=== PATIENT | male | born 1945 | race Caucasian/White ===

== ENCOUNTER → 2023-06-04 10:12 | Outpatient (REF) | payer OTHER, SELFPAY | LOC: DHCBS MAIN 10:12 | PROVIDERS: ATTENDING PHYSICIAN Internal Medicine Cardiovascular Disease; FAMILY PHYSICIAN Internal Medicine | DX: I48.0 Paroxysmal atrial fibrillation (principal) | CPT/HCPCS: 93306 ==

== ENCOUNTER → 2023-06-15 11:28 | Outpatient (REF) | payer OTHER, SELFPAY | LOC: RAD 11:28 | PROVIDERS: ATTENDING PHYSICIAN Internal Medicine | DX: R93.89 Abnormal findings on diagnostic imaging of other specified body structures (principal); M54.50 Low back pain, unspecified; M54.6 Pain in thoracic spine | CPT/HCPCS: 71046; 72072; 72110 ==

== ENCOUNTER 2023-06-22 15:23 | Emergency (ER) | payer OTHER, SELFPAY ==
[2023-06-22 15:42] VITALS: BP 162/81
[2023-06-22 16:03] VITALS: BP 133/80
--- NOTE | 2023-06-22 16:09 | ED.GENMED ---
History of Present Illness
General
Chief Complaint: Weakness
Source: patient and family
Exam Limitations: none
Time Seen by Provider: 06/22/23 15:58
Travel History
Have you had any contact with someone who has COVID-19?: No
Do you have any symptoms of coronavirus? Fever > 100 degrees, chills, cough, shortness of breath, sore throat, loss of taste or smell, muscle aches, or headache?: No
History of Present Illness
History of Present Illness:
See MDM
Past History
Past History
ED Past Medical History: Arrthythmia, HTN and Other (BPH)
ED Past Surgical History: Other (Retinal Detachment )
Social History
Tobacco: Non-smoker
Alcohol: None
Phy Exam
Physical Exam
Physical Exam:
See MDM
Course
Orders/Labs/Results
Orders:
Orders
06/22/23 15:50
Electrocardiogram (*1) Urgent
Reason for Study: Fatigue / Weakness
EKG- Treatment ONCE
06/22/23 16:06
CT Chest With Iv Contrast Urgent
Comment: pna vs neopasm to R base on prior CXR
Reason For Exam: persistent SOB and weakness
06/22/23 16:13
CMP [Comprehensive Metabolic Panel] Urgent
COVID-19 Antigen Urgent
Source: Nasal Swab
Complete Blood Count/With Diff Urgent
Magnesium Urgent
NT-proBNP Urgent
PT/INR [Prothrombin Time] Urgent
PTT Urgent
Troponin I Urgent
Influenza A+B Rapid Molecular Urgent
CARLOS Source: Nasal Swab
Specimen Description:
06/22/23 16:33
Hydrocortisone Sod Succinate [Solu-Cortef] 200 mg IV NOW STA
06/22/23 16:39
Urinalysis Reflex To Culture Urgent
Date Specimen was Collected: 06/22/23
Time Specimen was Collected: 16:25
Abnormal Lab Results
06/22/23
16:13
RBC 3.93 L 10^6/uL
(4.70-6.10)
Hgb 10.1 L g/dL
(13.0-18.0)
Hct 31.1 L %
(39.0-52.0)
MCV 79.1 L fL
(80.0-94.0)
MCH 25.7 L pg
(27.0-31.0)
MCHC 32.5 L g/dL
(33.0-37.0)
RDW 16.5 H %
(11.5-14.5)
Plt Count 445 H 10^3/uL
(130-400)
Absolute Neuts (auto) 8.3 H 10^3/uL
(1.4-6.5)
Absolute Lymphs (auto) 0.6 L 10^3/uL
(1.2-3.4)
Absolute Monos (auto) 0.7 H 10^3/uL
(0.1-0.6)
Neutrophils % 84.0 H %
(42.2-75.2)
Lymphocytes % 6.0 L %
(20.5-51.1)
PT 20.3 H Sec
(11.4-14.6)
APTT 41.9 H Sec
(23.4-35.0)
Sodium 132 L mmol/L
(135-145)
Potassium 5.3 H mmol/L
(3.5-5.1)
Chloride 97 L mmol/L
(98-107)
BUN 30 H mg/dl
(9-20)
Glucose 130 H mg/dl
(70-99)
ALT 60 H U/L
(0-50)
Troponin I 0.044 H* ng/ml
Albumin 3.3 L g/dl
(3.5-5.0)
06/22/23 16:13
06/22/23 16:13
Vital Signs
Initial and Last Documented VS:
Initial Vital Signs
Temp Pulse Resp BP Pulse Ox
98.3 F 93 18 162/81 96
06/22/23 15:42 06/22/23 15:42 06/22/23 15:42 06/22/23 15:42 06/22/23 15:42
Last Documented Vital Signs
Temp Pulse Resp BP Pulse Ox
98.3 F 90 23 133/80 100
06/22/23 15:42 06/22/23 16:15 06/22/23 16:15 06/22/23 16:03 06/22/23 16:18
MDM/Problems Addressed
Differential Diagnosis Includes:
HPI and MDM Narrative:
77-year-old male presenting with generalized weakness and fatigue over the past 4 days. This is associated with shortness of breath. He had a follow-up with his PCP today and was sent to the emergency department for further evaluation.
denies fevers or cough. She did reference a chest x-ray done earlier in the month that showed concern for pneumonia versus cancer. He is scheduled for CT chest tomorrow. He is compliant with his Eliquis.
On exam, patient is very weak and fatigued. Will obtain CT chest to better evaluate the chest x-ray finding.
Physical exam
General: Weak and frail
HEENT: protecting airway
Neck: appears supple
CV: No evidence of cyanosis. Tachycardic but regular
Resp: No accessory muscle use. Poor air exchange but lungs appear clear
Abd: Non-distended
Extremities: No deformities. No leg edema
Neuro: alert
Psych: Flat affect
Skin: Intact
Problems Addressed including Acute and Chronic Conditions affecting care:
1. Generalized weakness
Acuity: acute
Prognosis: stable
Details: Will obtain basic blood work and urinalysis
2. Shortness of breath
Acuity: acute
Prognosis: stable
Details: Given compliance with Eliquis, doubt PE. Will obtain CT chest to further evaluate recent chest x-ray finding of pneumonia versus neoplasm
3. Lung cancer
Acuity: acute
Prognosis: stable
Details: CT scan consistent with lung cancer
Updates
6:45 PM indicates that she would like to take the patient home now. We did discuss the concerning blood work in regards to his heart. She does acknowledge my concerns but states that the plan for the family is to place him on palliative care
and possibly hospice.
At this point, the CT scan did return showing concern for metastatic lung cancer. We did discuss admission versus discharge. We discussed possible admission for pain control and possible bronchoscopy for biopsy. acknowledges this but states
that she is going to take him home. I will write for prescription of Percocet.
Differential Diagnosis (but not limited to): Pneumonia, lung cancer, dehydration, metabolic encephalopathy, CHF exacerbation
Testing considered: Lactic acid and blood cultures but will evaluate chest CT first
Drug therapy (if applicable): OTC meds, please see d/c instruction regarding Rx drugs
Amount and/or Complexity of Data Reviewed
Clinical info obtained from: Patient. states weakness has progressed over the past 4 days
External data reviewed: Chest x-ray performed earlier in the month showed right basilar pneumonia versus neoplasm
Labs I independently reviewed (but not limited to): Elevated troponin and BNP, mild hyperkalemia
Radiology: The CT scan was personally and independently reviewed. In addition, official CT report reviewed.
Pulse Ox: not hypoxic
EKG independently reviewed: Sinus rhythm, normal axis, no STEMI, PVCs
Sample Maker Hand: Sinus rhythm
Critical Care: N/A
Risk of Complication:
Social Determinants of health: Good social support
Discussed with other providers: N/A
Escalation of Care includes Admit/Obs: After being observed in the Emergency Department, pt seems mildly unstable but wants to take him home.
Occasional wrong word or 'sound a like' substitutions may have occurred due to the inherent limitations of voice recognition software. Read the chart carefully and recognize, using context, where substitutions have occurred.
*Critical Care Note
Total Time (30-74mins, 75-104mins- exclusive of procedures): Not Applicable
ED Attending Note
-
Portions of this chart may have been created with voice recognition software.� Occasional wrong word or��sound alike� substitutions may have occurred due to the inherent limitations of voice recognition software.
Discharge Plan
Departure
Patient Disposition: Home (Routine Discharge)
Date of Disposition: 06/22/23
Time of Disposition: 18:45
Patient with high blood pressure during this ER visit?: No
Discharge Problem:
Weakness
Instructions: Generalized Weakness (DC)
Prescriptions:
New
oxycodone 5 mg tablet
5 mg PO Q8H PRN (Reason: Pain) Qty: 20 0RF
No Action
clopidogrel 75 mg tablet
75 mg PO DAILY
tamsulosin 0.4 mg capsule
0.4 mg PO QPM
atorvastatin 40 mg Tablet
40 mg PO DAILY 30 Days Qty: 30 0RF
Eliquis 5 mg Tablet
5 mg PO BID 30 Days Qty: 60 0RF
Referrals:
UNKNOWN - PT DOES,NOT KNOW [Unknown Provider] -
Activity Restrictions/Additional Instructions:
As we discussed, his generalized weakness is likely related to the lung cancer found on the CT scan. There is metastatic disease as well.
He was given a prescription for narcotics. If he requires this pain medicine, please take a daily [id number] stool softener to avoid constipation.
Please bring the CT report and blood work to his primary care doctor.
You may return at any time.
Interventions
Interventions:
*General Assessment Last Done: 06/22/23 16:18
*Neglect/Abuse Screening Last Done: 06/22/23 16:18
ED- Fall Risk Assessment Last Done: 06/22/23 16:18
*ED COVID-19 Vaccine History Last Done: 06/22/23 16:18
ED- Cardiac Assessment Last Done: 06/22/23 16:18
ED- Neurological Assessment Last Done: 06/22/23 16:18
ED- Pulmonary Assessment Last Done: 06/22/23 16:18
[2023-06-22 16:16] VITALS: BMI 16.5
[2023-06-22 16:33] LABS: % Basophils 0.5 % (0-2); % Eosinophils 1.9 % (0-6); % Immature Granulocytes 0.4 % (0-0.5); % Monocytes 7.2 % (1.7-9.3); Absolute Basophils 0.1 10^3/uL (0-0.2); Absolute Eosinophils 0.2 10^3/uL (0-0.7); Absolute Lymphocytes 0.6 10^3/uL (1.2-3.4); Absolute Monocytes 0.7 10^3/uL (0.1-0.6); Absolute Neutrophils 8.3 10^3/uL (1.4-6.5); Hematocrit 31.1 % (39.0-52.0); Hemoglobin 10.1 g/dL (13.0-18.0); Mean Corp Hgb Conc. 32.5 g/dL (33.0-37.0); Mean Corpuscular Hgb 25.7 pg (27.0-31.0); Mean Corpuscular Volume 79.1 fL (80.0-94.0); Mean Platelet Volume 10.2 fL (7.4-10.4); Nucleated Red Blood Cells % 0 % (-); Platelet Count 445 10^3/uL (130-400); Red Blood Cell Count 3.93 10^6/uL (4.70-6.10); Red Cell Dist. Width 16.5 % (11.5-14.5); White Blood Cell Count 9.9 10^3/uL (4.8-10.8)
[2023-06-22] MEDS: SOLU-CORTEF 200 MG IV (16:44)
[2023-06-22 16:45] LABS: APTT 41.9 Sec (23.4-35.0); INR 1.75; PT 20.3 Sec (11.4-14.6)
[2023-06-22 16:49] LABS: COVID-19 Antigen Negative (Negative)
[2023-06-22 16:50] LABS: ALT (SGPT) 60 U/L (0-50); AST (SGOT) 57 U/L (17-59); Albumin 3.3 g/dl (3.5-5.0); Alkaline Phosphatase 101 U/L (38-126); Blood Urea Nitrogen 30 mg/dl (9-20); Calcium 9.6 mg/dl (8.4-10.2); Carbon Dioxide 28 mmol/L (22-30); Chloride 97 mmol/L (98-107); Estimated Creatinine Clearance 37 ml/min; Glucose 130 mg/dl (70-99); Magnesium 2.1 mg/dl (1.6-2.3); Potassium 5.3 mmol/L (3.5-5.1); Sodium 132 mmol/L (135-145); Total Bilirubin 0.7 mg/dl (0.2-1.3); eGFR > 60.00
[2023-06-22 17:00] VITALS: BP 112/63
[2023-06-22 17:10] LABS: Urine Albumin Trace (Neg - Trace); Urine Bilirubin Negative (Negative); Urine Character Clear (Clear); Urine Color Yellow; Urine Glucose Negative (Negative); Urine Ketone Negative (Negative); Urine Leukocyte Negative (Negative); Urine Nitrite Negative (Negative); Urine Occult Blood Negative (Negative); Urine Urobilinogen Negative (Neg - 1+)
[2023-06-22 17:10] LABS: NT-proBNP 2030 pg/ml; Troponin I 0.044 ng/ml
== END 2023-06-22 19:27 | disposition home or self-care (01) ==
LOC: EMR 15:23
PROVIDERS: Emergency Medicine; EMERGENCY PHYSICIAN Student in an Organized Health Care Education/Training Program; FAMILY PHYSICIAN Internal Medicine
DX: R53.1 Weakness (principal); I10 Essential (primary) hypertension; N40.0 Benign prostatic hyperplasia without lower urinary tract symptoms
CPT/HCPCS: 99284; 71260; 80053; 81003; 83735; 83880; 84484; 85025; 85610; 85730; 87502; 87811; 93005; Q9967